=== PATIENT | female | born 1935 | race Caucasian/White ===

== ENCOUNTER 2017-09-08 14:47 | Observation (INO) | payer MEDICAID, OTHER ==
[2017-09-08 15:33] LABS: ADD MAN DIFF? NO
[2017-09-08 15:37] LABS: BASOPHILS % 0.6 % (0.0-2.0); EOSINOPHILS % 0.3 % (0.0-7.0); HEMATOCRIT 42.6 % (37.0-47.0); HEMOGLOBIN 14.2 g/dl (12.0-16.0); LYMPHOCYTES # 1.5 10^3/ul (0.8-2.9); LYMPHOCYTES % 20.4 % (15.0-51.0); MEAN CORPUSCULAR HEMOGLOBIN 28.3 pg (29.0-33.0); MEAN CORPUSCULAR HGB CONC 33.3 g/dl (32.0-37.0); MEAN CORPUSCULAR VOLUME 84.9 fl (82.0-101.0); MONOCYTE # 0.4 10^3/ul (0.3-0.9); NEUTROPHIL # 5.2 10^3/ul (1.6-7.5); NEUTROPHILS % 72.4 % (39.0-77.0); PLATELET COUNT 534 10^3/UL (140-415); RED BLOOD COUNT 5.02 10^6/ul (4.20-5.40); RED CELL DISTRIBUTION WIDTH 12.3 % (11.5-14.5)
[2017-09-08 15:37] LABS: WHITE BLOOD COUNT 7.2 10^3/ul (4.8-10.8)
[2017-09-08 15:43] LABS: ADD UMIC YES; UR ASCORBIC ACID NEGATIVE (NEGATIVE); UR BACTERIA FEW /HPF (NONE SEEN); UR BILIRUBIN (Dip) NEGATIVE (NEGATIVE); UR BLOOD (Dip) 1+ mg/dL (NEGATIVE); UR CLARITY SLIGHTLY CLOUDY (CLEAR); UR COLOR YELLOW (YELLOW); UR GLUCOSE (Dip) NEGATIVE (NEGATIVE); UR KETONES (Dip) NEGATIVE (NEGATIVE); UR LEUKOCYTE ESTERASE (Dip) 2+ Leu/ul (NEGATIVE); UR NITRITE (Dip) NEGATIVE (NEGATIVE); UR RBC 1 /HPF (0-5); UR SPECIFIC GRAVITY (Dip) 1.009 (1.003-1.030); UR TOTAL PROTEIN (Dip) NEGATIVE (NEGATIVE); UR UROBILINOGEN (Dip) NEGATIVE (NEGATIVE); UR WBC 14 /HPF (0-5)
[2017-09-08 15:51] LABS: INR 0.88; PT RATIO 0.9
[2017-09-08 15:52] LABS: PARTIAL THROMBOPLASTIN TIME 25.7 Sec (25.0-35.0)
[2017-09-08 15:57] LABS: ANION GAP 18 (8-16); BLOOD UREA NITROGEN 32 mg/dl (7-20); CARBON DIOXIDE 24 mmol/L (21-31); CHLORIDE 104 mmol/L (97-110); CREATININE 1.13 mg/dl (0.44-1.00); GLUCOSE 194 mg/dl (70-220); POTASSIUM 4.9 mmol/L (3.5-5.1); SODIUM 141 mmol/L (135-144)
[2017-09-08 16:00] LABS: AMPHETAMINE/METHAMPHETAMINE Negative (NEGATIVE); BARBITURATES Negative (NEGATIVE); BENZODIAZEPINES Positive (NEGATIVE); CANNABINOIDS Negative (NEGATIVE); COCAINE Negative (NEGATIVE); OPIATES Negative (NEGATIVE)
[2017-09-08] MEDS: SOD CHLORIDE 0.9% 1,000 ML IV (16:15)
[2017-09-08 16:16] LABS: HEMOGLOBIN A1C 7.9 % (0-5.9)
[2017-09-08 16:20] LABS: TROPONIN-I < 0.012 ng/ml (0.00-0.12)
[2017-09-08 16:41] LABS: ALBUMIN 4.8 g/dl (3.3-4.9)
[2017-09-08] MEDS ORDERED: SOD CHLORIDE 0.9% 1,000 ML IV (19:19)
[2017-09-08] MEDS ORDERED: LABETALOL HCL 20MG INJ IV (19:30)
[2017-09-08] MEDS ORDERED: MAGNESIUM HYDROXIDE 30ML CUP PO (19:30)
[2017-09-08] MEDS ORDERED: morphine 2 MG INJ IV (19:30)
[2017-09-08] MEDS ORDERED: NACL 0.9% 3 ML SYG IV (19:30)
[2017-09-08] MEDS ORDERED: DOCUSATE SODIUM 100 MG CAP PO (19:30)
[2017-09-08] MEDS ORDERED: ACETAMINOPHEN 325 MG TAB PO ×2 (19:30)
[2017-09-08] MEDS ORDERED: ONDANSETRON 4 MG INJ IV ×2 (19:30)
[2017-09-08] MEDS: CEFTRIAXONE 1 GM/50 ML (PMX) 50 ML IVPB ×2 (20:00→21:13)
[2017-09-08] MEDS: SOD CHLORIDE 0.45% 1,000 ML IV (21:10)
[2017-09-08] MEDS: LABETALOL HCL 20MG INJ IV (21:12)
[2017-09-08] MEDS: AMLODIPINE 5 MG TAB PO (22:30)
[2017-09-09] MEDS: SOD CHLORIDE 0.45% 1,000 ML IV (04:00)
[2017-09-09] MEDS: ENALAPRIL 20 MG TAB PO (09:00)
[2017-09-09 09:20] LABS: ADD MAN DIFF? NO
[2017-09-09 09:23] LABS: BASOPHIL # 0.1 10^3/ul (0.0-0.1); BASOPHILS % 0.7 % (0.0-2.0); EOSINOPHILS # 0.1 10^3/ul (0.0-0.5); EOSINOPHILS % 1.3 % (0.0-7.0); HEMATOCRIT 36.1 % (37.0-47.0); HEMOGLOBIN 12.3 g/dl (12.0-16.0); LYMPHOCYTES # 1.9 10^3/ul (0.8-2.9); MEAN CORPUSCULAR HEMOGLOBIN 28.8 pg (29.0-33.0); MEAN CORPUSCULAR HGB CONC 34.1 g/dl (32.0-37.0); MEAN CORPUSCULAR VOLUME 84.5 fl (82.0-101.0); MEAN PLATELET VOLUME 10.4 fl (7.4-10.4); MONOCYTE # 0.4 10^3/ul (0.3-0.9); MONOCYTES % 5.9 % (0.0-11.0); NEUTROPHIL # 4.4 10^3/ul (1.6-7.5); NEUTROPHILS % 63.8 % (39.0-77.0); PLATELET COUNT 477 10^3/UL (140-415); RED BLOOD COUNT 4.27 10^6/ul (4.20-5.40); RED CELL DISTRIBUTION WIDTH 12.6 % (11.5-14.5)
[2017-09-09 09:23] LABS: WHITE BLOOD COUNT 6.9 10^3/ul (4.8-10.8)
[2017-09-09] MEDS: ASPIRIN (EC) 81 MG TAB PO (09:32)
[2017-09-09] MEDS: metFORMIN 500 MG TAB PO (09:32)
[2017-09-09] MEDS: HYDROCODONE/APAP (5/325) TAB PO (09:32)
[2017-09-09] MEDS: AMLODIPINE 5 MG TAB PO (09:32)
[2017-09-09 09:54] LABS: ANION GAP 13 (8-16); BLOOD UREA NITROGEN 20 mg/dl (7-20); CALCIUM 9.6 mg/dl (8.4-10.2); CARBON DIOXIDE 21 mmol/L (21-31); CHLORIDE 109 mmol/L (97-110); CREATININE 0.97 mg/dl (0.44-1.00); GLUCOSE 171 mg/dl (70-220); MAGNESIUM 1.8 mg/dl (1.7-2.5); PHOSPHORUS 3.5 mg/dl (2.5-4.9); POTASSIUM 4.4 mmol/L (3.5-5.1); SODIUM 139 mmol/L (135-144)
[2017-09-09 09:55] LABS: TROPONIN-I < 0.012 ng/ml (0.00-0.12)
[2017-09-09] MEDS ORDERED: GLUCAGON 1 MG INJ IM (10:30)
[2017-09-09] MEDS ORDERED: GLUCOSE GEL 15 GRAM TUBE BUCCAL (10:30)
[2017-09-09] MEDS ORDERED: DEXTROSE 50% 50 ML SYRINGE IV ×2 (10:30)
[2017-09-09] MEDS ORDERED: GLUCOSE GEL 15 GRAM TUBE PO ×2 (10:30)
[2017-09-09] MEDS: INSULIN ASPART [NOVOLOG] 3 ML PEN SC ×3 (12:49→21:15)
[2017-09-09] MEDS: CEFTRIAXONE 1 GM/50 ML (PMX) 50 ML IVPB (21:11)
[2017-09-09] MEDS: ATORVASTATIN 20 MG TAB PO (21:11)
[2017-09-09] MEDS: ZOLPIDEM 5 MG TAB PO (23:47)
[2017-09-10] MEDS: hydrALAzine 20 MG INJ IV (05:39)
[2017-09-10] MEDS: AMLODIPINE 5 MG TAB PO (08:21)
[2017-09-10] MEDS: ASPIRIN (EC) 81 MG TAB PO (08:21)
[2017-09-10] MEDS: INSULIN ASPART [NOVOLOG] 3 ML PEN SC ×4 (08:24→20:42)
[2017-09-10] MEDS: LORAZEPAM 1 MG TAB PO (12:21)
[2017-09-10] MEDS: CEFTRIAXONE 1 GM/50 ML (PMX) 50 ML IVPB (20:37)
[2017-09-10] MEDS: ATORVASTATIN 20 MG TAB PO (20:38)
[2017-09-10] MEDS: ZOLPIDEM 5 MG TAB PO (22:06)
[2017-09-11] MEDS: INSULIN ASPART [NOVOLOG] 3 ML PEN SC ×4 (08:43→20:23)
[2017-09-11] MEDS: ASPIRIN (EC) 81 MG TAB PO (08:43)
[2017-09-11] MEDS: AMLODIPINE 5 MG TAB PO (08:44)
[2017-09-11] MEDS: LORAZEPAM 1 MG TAB PO (15:33)
[2017-09-11] MEDS: ATORVASTATIN 20 MG TAB PO (20:21)
[2017-09-11] MEDS: CEFTRIAXONE 1 GM/50 ML (PMX) 50 ML IVPB (20:21)
[2017-09-11] MEDS: ZOLPIDEM 5 MG TAB PO (20:21)
[2017-09-12] MEDS: INSULIN ASPART [NOVOLOG] 3 ML PEN SC ×2 (08:58→12:17)
[2017-09-12] MEDS: AMLODIPINE 5 MG TAB PO (08:59)
[2017-09-12] MEDS: ASPIRIN (EC) 81 MG TAB PO (08:59)
[2017-09-13] MEDS ORDERED: INFLUENZA VIRUS VACCINE 0.5 ML (DISPENSING) IM* (09:00)
== END 2017-09-12 16:45 | disposition home or self-care (01) ==
LOC: MS4 19:02 → E/R 14:47
PROVIDERS: Internal Medicine
DX: R53.1 Weakness (principal); N39.0 Urinary tract infection, site not specified; I10 Essential (primary) hypertension; E11.9 Type 2 diabetes mellitus without complications; Z86.73 Personal history of transient ischemic attack (TIA), and cerebral infarction without residual deficits; Z79.82 Long term (current) use of aspirin; Z79.84 Long term (current) use of oral hypoglycemic drugs
CPT/HCPCS: 36415; 70450; 70551; 71045; 80048; 80307; 81001; 82040; 82962; 83036; 83735; 84100; 84484; 85025; 85610; 85730; 87086; 92610; 93005; 93306; 93880; 96361; 96365; 96375; 97163; 99285-25; G0378